=== PATIENT | female | born 1985 | race Caucasian/White ===

== ENCOUNTER 2017-07-15 11:46 | Emergency (ER) | payer OTHER, MEDICAID ==
[2017-07-15 13:41] LABS: BASO % 0.3 % (0.0-1.0); EOS % 0.4 % (0.0-3.0); HEMATOCRIT 32.1 % (36.0-47.0); HEMOGLOBIN 10.9 g/dl (12.0-15.5); IMMATURE GRANULOCYTE % 0.5 % (0-3.0); LYMPH # 2.4 10^3/uL (1.5-4.5); LYMPH % 21.2 % (24.0-44.0); MEAN CORPUSCULAR HEMOGLOBIN 30.8 pg (27.0-33.0); MEAN CORPUSCULAR VOLUME 90.7 fl (80.0-96.0); MONO # 0.7 10^3/uL (0.0-0.8); MONO % 5.7 % (0.0-5.0); NEUTROPHILS # 8.1 10^3/uL (1.8-7.7); NEUTROPHILS % 71.9 % (36.0-66.0); PLATELET COUNT, AUTOMATED 261 10^3/uL (150-450); RED BLOOD COUNT 3.54 10^6/uL (4.00-5.40); RED CELL DISTRIBUTION WIDTH 13.5 % (11.5-14.5); WHITE BLOOD COUNT 11.3 10^3/uL (4.0-10.0)
[2017-07-15 13:44] LABS: KETONE, URINE AUTO RFX 2+ mg/dL (NEGATIVE); LEUKOCYTE ESTERASE UR AUTO RFX NEGATIVE (NEGATIVE); MUCUS, URINE RFX SMALL (NEGATIVE); NITRITE, URINE AUTO RFX NEGATIVE (NEGATIVE); RBC, URINE AUTO RFX 2 /HPF (0-3); SQUAM EPITHELIAL CELL UR AURFX 2 /HPF (0-6); WBC, URINE AUTO RFX 1 /HPF (0-3)
[2017-07-15 14:17] LABS: ANION GAP 11 MEQ/L (8-16); BLOOD UREA NITROGEN 4 MG/DL (7-18); CALCIUM LEVEL 8.2 MG/DL (8.5-10.1); CARBON DIOXIDE LEVEL 24 MEQ/L (21-32); CHLORIDE LEVEL 106 MEQ/L (98-107); CREATININE FOR GFR 0.42 MG/DL (0.55-1.30); GLOMERULAR FILTRATION RATE > 60.0 (>60); GLUCOSE, FASTING 71 MG/DL (70-100); POTASSIUM SERUM 2.7 MEQ/L (3.5-5.1); SODIUM LEVEL 141 MEQ/L (136-145)
[2017-07-15 16:33] LABS: CHLAMYDIA DNA AMPLIFICATION NEGATIVE (NEGATIVE); GC DNA AMPLIFICATION NEGATIVE (NEGATIVE)
== END 2017-07-15 14:48 | disposition left against medical advice (07) ==
LOC: M ED 11:46
DX: O23.592 Infection of other part of genital tract in pregnancy, second trimester (principal); B37.3 Candidiasis of vulva and vagina; O99.282 Endocrine, nutritional and metabolic diseases complicating pregnancy, second trimester; E87.6 Hypokalemia; O99.342 Other mental disorders complicating pregnancy, second trimester; F32.9 Major depressive disorder, single episode, unspecified; O99.512 Diseases of the respiratory system complicating pregnancy, second trimester; J45.909 Unspecified asthma, uncomplicated; O99.612 Diseases of the digestive system complicating pregnancy, second trimester; K21.9 Gastro-esophageal reflux disease without esophagitis; O99.412 Diseases of the circulatory system complicating pregnancy, second trimester; I42.9 Cardiomyopathy, unspecified; O99.332 Smoking (tobacco) complicating pregnancy, second trimester; F17.200 Nicotine dependence, unspecified, uncomplicated; Z3A.18 18 weeks gestation of pregnancy; Z88.0 Allergy status to penicillin; Z88.2 Allergy status to sulfonamides; Z79.899 Other long term (current) drug therapy
CPT/HCPCS: 76815

== ENCOUNTER → 2017-08-04 | Outpatient (CLI) | payer OTHER ==
[2017-08-04 17:41] LABS: ALBUMIN 3.5 GM/DL (3.2-5.2); ALBUMIN/GLOBULIN RATIO 1.13 (1.00-1.93); ALKALINE PHOSPHATASE 64 U/L (45-117); ALT/SGPT 20 U/L (12-78); ANION GAP 10 MEQ/L (8-16); AST/SGOT 19 U/L (7-37); BILIRUBIN,TOTAL 0.4 MG/DL (0.2-1.0); BLOOD UREA NITROGEN 5 MG/DL (7-18); CALCIUM LEVEL 8.7 MG/DL (8.5-10.1); CARBON DIOXIDE LEVEL 24 MEQ/L (21-32); CHLORIDE LEVEL 108 MEQ/L (98-107); CREATININE FOR GFR 0.44 MG/DL (0.55-1.30); GLOMERULAR FILTRATION RATE > 60.0 (>60); GLUCOSE, FASTING 59 MG/DL (70-100); POTASSIUM SERUM 4.1 MEQ/L (3.5-5.1); SODIUM LEVEL 142 MEQ/L (136-145); TOTAL PROTEIN 6.6 GM/DL (6.4-8.2)
[2017-08-04 18:00] LABS: BASO # 0.1 10^3/uL (0.0-0.2); BASO % 0.4 % (0.0-1.0); EOS % 0.3 % (0.0-3.0); HEMATOCRIT 36.4 % (36.0-47.0); HEMOGLOBIN 11.9 g/dl (12.0-15.5); IMMATURE GRANULOCYTE % 0.8 % (0-3.0); LYMPH # 1.9 10^3/uL (1.5-4.5); LYMPH % 15.7 % (24.0-44.0); MEAN CORPUSCULAR HEMOGLOBIN 30.9 pg (27.0-33.0); MEAN CORPUSCULAR HGB CONC 32.7 g/dl (32.0-36.5); MEAN CORPUSCULAR VOLUME 94.5 fl (80.0-96.0); MONO # 0.7 10^3/uL (0.0-0.8); MONO % 5.5 % (0.0-5.0); NEUTROPHILS # 9.5 10^3/uL (1.8-7.7); NEUTROPHILS % 77.3 % (36.0-66.0); PLATELET COUNT, AUTOMATED 281 10^3/uL (150-450); RED BLOOD COUNT 3.85 10^6/uL (4.00-5.40); RED CELL DISTRIBUTION WIDTH 13.3 % (11.5-14.5); WHITE BLOOD COUNT 12.3 10^3/uL (4.0-10.0)
== END ==
LOC: M SMT 10:50
DX: O09.92 Supervision of high risk pregnancy, unspecified, second trimester (principal); Z3A.00 Weeks of gestation of pregnancy not specified
CPT/HCPCS: 80053

== ENCOUNTER → 2017-09-20 | Outpatient (CLI) | payer OTHER ==
[2017-09-20 13:57] LABS: BASO % 0.3 % (0.0-1.0); EOS # 0.1 10^3/uL (0.0-0.50); EOS % 0.6 % (0.0-3.0); HEMATOCRIT 31.4 % (36.0-47.0); HEMOGLOBIN 10.5 g/dl (12.0-15.5); LYMPH # 2.1 10^3/uL (1.5-4.5); LYMPH % 17.2 % (24.0-44.0); MEAN CORPUSCULAR HEMOGLOBIN 31.5 pg (27.0-33.0); MEAN CORPUSCULAR HGB CONC 33.4 g/dl (32.0-36.5); MEAN CORPUSCULAR VOLUME 94.3 fl (80.0-96.0); MONO # 0.9 10^3/uL (0.0-0.8); MONO % 7.3 % (0.0-5.0); NEUTROPHILS # 9.1 10^3/uL (1.8-7.7); NEUTROPHILS % 73.6 % (36.0-66.0); PLATELET COUNT, AUTOMATED 252 10^3/uL (150-450); RED BLOOD COUNT 3.33 10^6/uL (4.00-5.40); RED CELL DISTRIBUTION WIDTH 13.6 % (11.5-14.5); WHITE BLOOD COUNT 12.4 10^3/uL (4.0-10.0)
[2017-09-20 14:25] LABS: GLUCOSE CHALLENGE TEST 1 HOUR 102 MG/DL (LESS THAN 140)
[2017-09-21 08:48] LABS: TYPE AND SCREEN 1 1
== END ==
LOC: M SMT 10:31
DX: Z34.82 Encounter for supervision of other normal pregnancy, second trimester (principal); Z36.89 Encounter for other specified antenatal screening
CPT/HCPCS: 82950

== ENCOUNTER → 2017-10-25 | Outpatient (CLI) | payer OTHER | LOC: M RAD 12:30 | DX: O32.1XX0 Maternal care for breech presentation, not applicable or unspecified (principal); Z3A.37 37 weeks gestation of pregnancy | CPT/HCPCS: 76815 ==

== ENCOUNTER → 2017-11-23 | Outpatient (REF) | payer OTHER, MEDICAID | LOC: M LAB REF 17:24 | DX: O99.89 Other specified diseases and conditions complicating pregnancy, childbirth and the puerperium (principal) ==

== ENCOUNTER 2017-12-05 05:35 | Inpatient (IN) | payer OTHER ==
[2017-12-05] MEDS: LACTATED RINGER'S 1000 ML IV ×2 (06:26→08:00)
[2017-12-05 06:48] LABS: HEMATOCRIT 32.3 % (36.0-47.0); HEMOGLOBIN 10.6 g/dl (12.0-15.5); MEAN CORPUSCULAR HEMOGLOBIN 28.9 pg (27.0-33.0); MEAN CORPUSCULAR HGB CONC 32.8 g/dl (32.0-36.5); PLATELET COUNT, AUTOMATED 219 10^3/uL (150-450); RED BLOOD COUNT 3.67 10^6/uL (4.00-5.40); RED CELL DISTRIBUTION WIDTH 12.9 % (11.5-14.5)
[2017-12-05 07:16] LABS: AMPHETAMINES URINE REFLEX NEGATIVE (NEGATIVE); BARBITURATES URINE REFLEX NEGATIVE (NEGATIVE); BENZODIAZEPINES URINE REFLEX NEGATIVE (NEGATIVE); CANNABINOIDS URINE REFLEX NEGATIVE (NEGATIVE); COCAINE METABOLITE URINE REFLE NEGATIVE (NEGATIVE); METHADONE URINE REFLEX NEGATIVE (NEGATIVE); OPIATES URINE REFLEX NEGATIVE (NEGATIVE); PHENCYCLIDINE URINE REFLEX NEGATIVE (NEGATIVE)
[2017-12-05] MEDS ORDERED: CLINDAMYCIN 900 MG/50 ML PREMIX BAG As Ordered (07:48)
[2017-12-05] MEDS: BICITRA 30ML SOLN UDC PO ×2 (07:50→08:00)
[2017-12-05] MEDS: GENTAMICIN 80 MG in APPROPRIATE DILUENT 1 EA IV (08:00)
[2017-12-05] MEDS ORDERED: CLINDAMYCIN 900 MG in APPROPRIATE DILUENT 1 EA IV (08:00)
[2017-12-05] MEDS ORDERED: LR 1,000 ML IV (08:00)
[2017-12-05] MEDS ORDERED: ONDANSETRON 4MG/2ML VIAL (J2405) IV ×3 (08:02→09:30)
[2017-12-05] MEDS ORDERED: NALBUPHINE HCL 10 MG/ML AMP (J2300) IV ×2 (08:02→09:30)
[2017-12-05] MEDS ORDERED: NALOXONE INJ 0.4 MG/1 ML VIAL (J2310) IV ×2 (08:02)
[2017-12-05] MEDS ORDERED: MORPHINE PRES-FREE INJ 10 MG/10 ML VIAL (J2274) As Ordered (08:19)
[2017-12-05] MEDS ORDERED: OXYTOCIN INJ 10 UNITS/ML VIAL (J2590) As Ordered (08:19)
[2017-12-05] MEDS ORDERED: KETOROLAC 60 MG/2 ML VIAL (J1885) As Ordered ×2 (08:34)
[2017-12-05] MEDS ORDERED: PHENYLephrine HCL 500 MCG/5 ML (100MCG/ML) SYRINGE (J2370) As Ordered (08:34)
[2017-12-05] MEDS: LR 1,000 ML IV ×2 (08:53→16:53)
[2017-12-05] MEDS: PRENATAL VITAMINS CHEWABLE TABLET PO (09:00)
[2017-12-05] MEDS ORDERED: KETOROLAC 30 MG/ML VIAL (J1885) IV (09:00)
[2017-12-05] MEDS ORDERED: MEASLES,MUMPS,RUBELLA VACCINE INJ (MMR-II) (90707) SC (09:00)
[2017-12-05] MEDS ORDERED: HYDROMORPHONE HCL 0.5 MG/ 0.5 ML SYRINGE (J1170 PER 1) IV (09:30)
[2017-12-05] MEDS ORDERED: MEPERIDINE INJ 25 MG/ML VIAL (J2175) IV (09:30)
[2017-12-05] MEDS ORDERED: fentaNYL 100 MCG/2 ML INJECTION (J3010) IV (09:30)
[2017-12-05] MEDS ORDERED: PERCOCET 5MG/325MG TAB PO (09:30)
[2017-12-05] MEDS: KETOROLAC 30 MG/ML VIAL (J1885) IV ×2 (14:25→20:52)
[2017-12-05] MEDS: METOCLOPRAMIDE INJ 10MG/2ML VIAL (J2765) IV (16:12)
[2017-12-06] MEDS: LR 1,000 ML IV (00:53)
[2017-12-06] MEDS: KETOROLAC 30 MG/ML VIAL (J1885) IV (03:23)
[2017-12-06 06:34] LABS: HEMATOCRIT 26.7 % (36.0-47.0); HEMOGLOBIN 8.8 g/dl (12.0-15.5); MEAN CORPUSCULAR HEMOGLOBIN 28.9 pg (27.0-33.0); MEAN CORPUSCULAR VOLUME 87.5 fl (80.0-96.0); PLATELET COUNT, AUTOMATED 201 10^3/uL (150-450); RED BLOOD COUNT 3.05 10^6/uL (4.00-5.40); WHITE BLOOD COUNT 12.1 10^3/uL (4.0-10.0)
[2017-12-06] MEDS: PRENATAL VITAMINS CHEWABLE TABLET PO (08:22)
[2017-12-06] MEDS: INFLUENZA QUADRIVALENT PF VACCINE 0.5ML SYRINGE (90686) IM (08:45)
[2017-12-06] MEDS: ADACEL/BOOSTRIX VACCINE (DIPHTH/PERTUSS/ACELL/TETANUS)0.5ML SYR (90715) IM (08:47)
[2017-12-06] MEDS: IBUPROFEN 800 MG TAB PO ×2 (10:14→18:55)
[2017-12-06 12:49] LABS: FETAL SCREEN PROF. 1 1
[2017-12-06] MEDS: RHOGAM 300 MCG (1500 IU) INJ (J2790) IM (13:04)
[2017-12-06] MEDS: FUROSEMIDE 20 MG TAB PO (16:11)
[2017-12-06] MEDS: PERCOCET 5MG/325MG TAB PO ×2 (16:14→21:32)
[2017-12-06] MEDS: SLF 3 ML SYR IV ×2 (19:00→22:10)
[2017-12-06] MEDS: SIMETHICONE 80 MG CHEW TAB PO (21:56)
[2017-12-07] MEDS: IBUPROFEN 800 MG TAB PO ×2 (02:37→10:52)
[2017-12-07] MEDS: SLF 3 ML SYR IV (06:22)
[2017-12-07] MEDS: SIMETHICONE 80 MG CHEW TAB PO (07:56)
[2017-12-07] MEDS: PRENATAL VITAMINS CHEWABLE TABLET PO (07:56)
[2017-12-07] MEDS: PERCOCET 5MG/325MG TAB PO (07:56)
== END 2017-12-07 17:30 | disposition home or self-care (01) | DRG 540 ==
LOC: M LDI 05:35 → M OBS 11:05
PROVIDERS: Emergency Medicine Pediatric Emergency Medicine
PROC: 10D00Z1 Extraction of Products of Conception, Low, Open Approach (ICD-10-PCS; principal; 2017-12-05 07:30)
PROC: 0UB70ZZ Excision of Bilateral Fallopian Tubes, Open Approach (ICD-10-PCS; 2017-12-05 07:30)
DX: O32.1XX0 Maternal care for breech presentation, not applicable or unspecified (principal); Z30.2 Encounter for sterilization; Z37.0 Single live birth; Z3A.37 37 weeks gestation of pregnancy

== ENCOUNTER 2018-06-28 17:10 | Inpatient (IN) | payer BC, MEDICAID ==
[~2018-06-28] VITALS: Ht 170.2 cm; Wt 50.6 kg
[~2018-06-28 17:10] MED LIST: ASPI81TA3; CARV6.25 PO; COLA100C2; CORE25TA; FURO20TA2; FURO40TA2 PO; LASI40TA; LEXA1TAB; LEXA1TAB2; LORA10CA PO; MAGN500T2 PO; MONI1KIT3 PV; MOTR200T44 PO; NITR0.4S; OMEP10CASR PO; OMEP20TA PO; OXYC1TAB23 PO; POTA20TA6 PO; PREN1CAP9 PO; ZYRT10TA6; [UNRECOGNIZED DRUG - OTHER]; [UNRECOGNIZED DRUG - OTHER]; prenatal PO
[2018-06-28 19:30] VITALS: BP 110/71
[2018-06-28 19:45] VITALS: BP 106/61
[2018-06-28 20:00] VITALS: BP 108/61
[2018-06-28] MEDS ORDERED: MOM 30ML SUSPENSION UDC PO PRN (20:15)
[2018-06-28] MEDS ORDERED: MAALOX 30 ML SUSP *UDC PO PRN (20:15)
--- NOTE | 2018-06-28 20:19 | HPEPDOC ---
General Date of Admission June 28, 2018 at 19:20 Chief Complaint The patient is a 32-year-old female admitted with a reason for visit of Acute Blood Loss. Source: Patient, RN/MD History of Present Illness Ms. Bay is a 32 years old woman with hx/o post- cardiomyopathy who had an elective D&C at [facility] today and had significant bleeding, about 700cc. The pt was hypotensive BP 60/40, and tachycardic HR 150, associated with extreme dizziness and weakness. Pt was resuscitated with IV fluid, total of 3L boluses, and en route she also received 2 units of blood transfusion. On arrival to our ICU, pt has already improved. SBP is above 100, tachycardia is resolved, pt feels only slight dizzy. Other than abdominal pain from surgery, she has no other complaints. Denies chest pain or SOB. Denies hx/o abnormal bleeding. Elective D&C today was trigerred by her recent abnormal PAP smear result. Home Medications Scheduled Carvedilol (Carvedilol) 6.25 Mg Tab, 6.25 MG PO DAILY, (Reported) Omeprazole (Omeprazole) 20 Mg Tab, 20 MG PO DAILY, (Reported) Oxycodone HCl/Acetaminophen (Oxycodone-Acetaminophen 5-325) 1 Tab Tab, 1-2 TAB PO Q6HP for pain Potassium Chloride (Potassium Chloride) 20 Meq Tab, 20 MEQ PO DAILY, (Reported) Tae228/Iron/Folic/Dha ( Formula-Dha Softgel) 1 Cap Cap, 1 CAP PO DAILY, (Reported) Scheduled PRN Ibuprofen (Motrin Ib) 200 Mg Tab, 800 MG PO Q8HP PRN for PAIN, (Reported) Allergies Coded Allergies: Penicillins (Verified Allergy, Severe, RASH/HIVES/TONGUE SWELLS, 06/28/18) Sulfa (Sulfonamide Antibiotics) (Verified Allergy, Severe, RASH/HIVES/TONGUE SWELLS, 06/28/18) Past Medical History Medical History Post- cardiomyopathy Surgical History , Tubal ligation, Left Breast Lumpectomy Family History Significant Family History: No pertinent family hx Social History * Smoker: current smoker Alcohol: occationally Drugs: denies A-FIB/CHADSVASC A-FIB History Current/History of A-Fib/PAF?: No Review of Systems Constitutional: Reports: Weakness; Denies: Chills, Fever Eyes: Denies: Pain ENT: Denies: Head Aches Skin: Denies: Rash Pulmonary: Denies: Dyspnea, Cough Cardiovascular: Denies: Chest Pain, Edema Gastrointestinal: Reports: Abdominal Pain; Denies: Nausea, Vomiting Genitourinary: Denies: Dysuria Musculoskeletal: Denies: Back Pain Neurological: Reports: Weakness Psych: Reports: Mood Normal Physical Examination General Exam: Positive: Alert, Cooperative, No Acute Distress Eye Exam: Positive: PERRLA ENT Exam: Positive: Atraumatic Neck Exam: Positive: Supple; Negative: JVD Chest Exam: Positive: Clear to auscultation, Normal air movement Heart Exam: Positive: Rate Normal, Regular Rhythm Abdomen Exam: Positive: Normal bowel sounds, Soft; Negative: Tenderness Extremity Exam: Negative: Edema Skin Exam: Negative: Rash Neuro Exam: Positive: Strength at 5/5 X4 ext Psych Exam: Positive: Mental status NL, Mood NL Vital Signs Vital Signs Date Time Temp Pulse Resp B/P (MAP) Pulse Ox O2 Delivery O2 Flow Rate FiO2 06/28/18 19:45 97 16 106/61 (76) 100 06/28/18 19:30 99.2 Assessment/Plan Post-op Uterine Hemorrhage, with hypotension now resolved - Keep on observation in ICU - If any signs of further bleeding or hypotension, transfuse +/- fluid bolus - Now that pt is stable, avoid further transfusion or IV fluid due to risk of cardiac decompensation - basic Labs; serial H/H; CXR Post- Cardiomyopathy - In a compensated state - Re-start hoe meds: Coreg and Lasix Plan / VTE VTE Prophylaxis Ordered?: Yes VTE Exclusion Mechanical Proph: N/A:VTE Prophy Ordered VTE Exclusion Pharmacological: Active Bleeding Plan Anticipated Discharge: Home YEISON JOSHUA MD June 28, 2018 20:19
[2018-06-28 20:30] VITALS: BP 105/58
[2018-06-28 20:39] LABS: BASO % 0.2 % (0.0-1.0); HEMATOCRIT 25.2 % (36.0-47.0); HEMOGLOBIN 8.3 g/dl (12.0-15.5); LYMPH # 0.9 10^3/uL (1.5-4.5); LYMPH % 4.3 % (24.0-44.0); MEAN CORPUSCULAR HEMOGLOBIN 31.2 pg (27.0-33.0); MEAN CORPUSCULAR HGB CONC 32.9 g/dl (32.0-36.5); MEAN CORPUSCULAR VOLUME 94.7 fl (80.0-96.0); MONO # 0.8 10^3/uL (0.0-0.8); MONO % 4.1 % (0.0-5.0); NEUTROPHILS # 17.9 10^3/uL (1.8-7.7); NEUTROPHILS % 90.4 % (36.0-66.0); PLATELET COUNT, AUTOMATED 205 10^3/uL (150-450); RED BLOOD COUNT 2.66 10^6/uL (4.00-5.40); WHITE BLOOD COUNT 19.8 10^3/uL (4.0-10.0)
[2018-06-28 20:52] LABS: INR 1.16
[2018-06-28 20:53] LABS: PARTIAL THROMBOPLASTIN TIME 25.8 SECONDS (25.4-37.6)
[2018-06-28 20:59] LABS: ALBUMIN 2.8 GM/DL (3.2-5.2); ALT/SGPT 11 U/L (12-78); BILIRUBIN,TOTAL 0.8 MG/DL (0.2-1.0); BLOOD UREA NITROGEN 12 MG/DL (7-18); CALCIUM LEVEL 7.8 MG/DL (8.5-10.1); CARBON DIOXIDE LEVEL 21 MEQ/L (21-32); CHLORIDE LEVEL 115 MEQ/L (98-107); CREATININE FOR GFR 0.66 MG/DL (0.55-1.30); GLOMERULAR FILTRATION RATE > 60.0 (>60); GLUCOSE, FASTING 103 MG/DL (70-100); POTASSIUM SERUM 4.6 MEQ/L (3.5-5.1); SODIUM LEVEL 142 MEQ/L (136-145); TOTAL PROTEIN 4.7 GM/DL (6.4-8.2)
[2018-06-28 21:00] VITALS: BP 93/60
[2018-06-28] MEDS: CARVedilol 3.125 MG TAB PO SCH (21:00)
[2018-06-28] MEDS: PERCOCET 5MG/325MG TAB PO PRN (21:08)
[2018-06-28] MEDS: FERROUS SULFATE 325MG TAB PO SCH (21:45)
[2018-06-28] MEDS: ONDANSETRON 4MG/2ML VIAL (J2405) IV SCH (22:52)
[2018-06-28] MEDS: MORPHINE 4 MG/ML 1ML VIAL/SYRINGE (J2270) IV PRN (22:52)
[2018-06-29] VITALS (16 sets, daily range): BP systolic 92–130; BP diastolic 50–80
[2018-06-29] MEDS: PERCOCET 5MG/325MG TAB PO PRN ×3 (00:09→16:50)
[2018-06-29] MEDS: SIMETHICONE 80 MG CHEW TAB PO SCH ×5 (00:32→20:40)
[2018-06-29 00:36] LABS: HEMATOCRIT 22.1 % (36.0-47.0); HEMOGLOBIN 7.3 g/dl (12.0-15.5)
[2018-06-29] MEDS: ONDANSETRON 4MG/2ML VIAL (J2405) IV SCH ×5 (01:00→14:04)
--- NOTE | 2018-06-29 01:52 | REP ---
Clinical: "Blood loss". Comparison: 03/05/2009 . Findings: The mediastinum and cardiac silhouette are stable and within normal limits for portable technique. The lung meyer are clear without acute consolidation, effusion, or pneumothorax. Skeletal structures are intact. Impression: No acute cardiopulmonary process appreciated. Electronically Signed by Nino Luo MD 06/29/2018 01:44 A
[2018-06-29] MEDS ORDERED: GNP28TAB2 PO (01:57)
[2018-06-29] MEDS ORDERED: ASCO100013 PO (01:57)
[2018-06-29] MEDS ORDERED: NORC1TAB7 PO (01:57)
[2018-06-29] MEDS ORDERED: IBUP1TAB6 PO (01:57)
[2018-06-29] MEDS ORDERED: FURO20TA2 PO (01:57)
[2018-06-29] MEDS: MORPHINE 4 MG/ML 1ML VIAL/SYRINGE (J2270) IV PRN ×2 (02:29→07:05)
[2018-06-29] MEDS ORDERED: FUROSEMIDE 40 MG/4 ML VIAL (J1940) IV ONE (05:00)
[2018-06-29 07:59] LABS: BASO # 0.1 10^3/uL (0.0-0.2); BASO % 0.4 % (0.0-1.0); EOS % 0.1 % (0.0-3.0); HEMATOCRIT 31.3 % (36.0-47.0); MEAN CORPUSCULAR HEMOGLOBIN 30.2 pg (27.0-33.0); MEAN CORPUSCULAR HGB CONC 33.2 g/dl (32.0-36.5); MONO # 1.3 10^3/uL (0.0-0.8); MONO % 9.5 % (0.0-5.0); NEUTROPHILS # 10.5 10^3/uL (1.8-7.7); NEUTROPHILS % 75.5 % (36.0-66.0); PLATELET COUNT, AUTOMATED 142 10^3/uL (150-450); RED BLOOD COUNT 3.44 10^6/uL (4.00-5.40); WHITE BLOOD COUNT 13.9 10^3/uL (4.0-10.0)
[2018-06-29 08:02] LABS: HEMOGLOBIN 10.4 g/dl (12.0-15.5)
[2018-06-29] MEDS: FERROUS SULFATE 325MG TAB PO SCH ×3 (08:09→20:40)
[2018-06-29] MEDS: CARVedilol 3.125 MG TAB PO SCH ×2 (08:10→21:00)
[2018-06-29] MEDS ORDERED: MORPHINE 4 MG/ML 1ML VIAL/SYRINGE (J2270) IV PRN (08:30)
[2018-06-29] MEDS ORDERED: FUROSEMIDE 20 MG TAB PO SCH (09:00)
[2018-06-29] MEDS ORDERED: ISOVUE-370 76% 100ML VIAL (Q9967) As Ordered ONE (11:55)
--- NOTE | 2018-06-29 12:38 | REP ---
CT ABDOMEN AND PELVIS WITH IV BUT WITHOUT ORAL CONTRAST: HISTORY: Falling hemoglobin and hematocrit. 2 days status post elective dilation and curettage with significant bleeding. Hypotension tachycardia. CT CONTRAST DOSE: 100 mL of intravenous Isovue 370. CT FINDINGS: Preliminary digital it infrastructure architect radiograph is unremarkable. The lung bases are clear. There is no evidence of pleural effusion. There is however moderate diffuse ascites. There is a differential density pattern in the ascites with higher attenuation ascitic fluid in the dependent portions of the cul-de-sac and abdomen consistent with hematocrit effect and hemoperitoneum. In the pelvis, there is mottled air collection extending posterolaterally from the lower cervix into what appears to be the parametrial soft tissue above the level of the vagina. Question uterine perforation. This mottled area containing air extends over a 4.5 cm oblique craniocaudal span. Urinary bladder is intact. There is no evidence of free intraperitoneal air. There are fluid-filled loops of small bowel throughout the abdomen. No large bowel dilation is seen. No obstruction seen. No bony lesion is appreciated. IMPRESSION: 1. Moderate to large hemoperitoneum. 2. Mottled gas collection 4.5 cm in greatest diameter in the left parametrial soft tissues; question uterine perforation. No free intraperitoneal air. Electronically Signed by Jw Funes MD 06/29/2018 01:15 P
[2018-06-29 13:28] LABS: HEMATOCRIT 28.2 % (36.0-47.0); HEMOGLOBIN 9.3 g/dl (12.0-15.5)
--- NOTE | 2018-06-29 15:21 | IPN ---
DATE OF VISIT: 06/29/2018 SUBJECTIVE: Patient is seen and examined in the room today. Patient is a 32-year-old female patient who had a colposcopy and dilatation and curettage (D C) in [facility] yesterday. Patient had more than 700 mL of blood loss during procedure, patient became hypotensive, at the time her blood pressure was 60/40. Patient then was not able to receive blood transfusion. Multiple liters of blood transfusion was given to the patient and request transfer was made to [facility] for upper level of care. While patient was en route patient received 2 units of packed red blood transfusion. After patient arrived at [facility] intensive care unit (ICU) patient received another additional two packed red blood cell transfusions. This morning during encounter patient's blood pressure maintained in the stable range, no recurrence of tachycardia. Patient denies any significant vaginal bleeding. However, the patient did complain of persistent lower abdominal discomfort. Later patient was transferred from ICU to med/surg. So later patient complained about worsening abdominal discomfort and IV and by mouth pain medication were not able to help control the symptoms well and urgent CT imaging was obtained and patient was found to have moderate to large hemoperitoneum and a moderate gas collection in the left parametrial soft tissue concerning for uterine perforation and OB-[facility] specialist, Dr. Coronado, was consulted urgently and we had a family discussion with the patient and patient's family and patient was upgraded to the telemetry floor. I will continue to follow with hemoglobin, hematocrit and vitals closely. Patient waiting for with regard to the diagnostic finding and agree with the plan. OBJECTIVE: Temperature 99.2, pulse 75, respiration 16, blood pressure 115/64, pulse ox 99% on room air. GENERAL: Mild to moderate distress secondary to persistent lower abdominal pain. HEENT: Normocephalic, atraumatic. Extraocular motions. CARDIOVASCULAR: Positive S1, S2. Regular rate. LUNGS: Clear to auscultation bilaterally. ABDOMEN: Abdominal distension noted. Discomfort to palpation mainly in the lower abdomen. Bowel sounds present. EXTREMITIES: No edema. LABORATORY DATA: WBC 13.9, hemoglobin 10.4, hematocrit 31.3, platelet count is 142, sodium 142, potassium 4.6, chloride 115, carbon dioxide 21, BUN 12, creatinine 0.6, GFR greater than 60, fasting glucose is 103, calcium 7.8, total bilirubin 0.8, AST 16, ALT 11, alkaline phosphatase 40, total protein 4.7, albumin 2.8. ASSESSMENT AND PLAN: 1. Uterine perforation. Patient has a recent colposcopy performed. Patient was upgraded to ICU, patient was changed to inpatient status. OB-[facility] specialist, Dr. Coronado, consulted. Patient will be switched to a clear liquid diet. Pain control is IV and by mouth medications. We will keep track of hemoglobin and hematocrit every 6 hours. We will transfuse the patient as needed. 2. cardiomyopathy. On Coreg with holding parameter. Coreg is on hold. 3. Deep venous thrombosis (DVT) prophylaxis. Patient will be on thromboembolic deterrent stockings (TEDS) compression.
[2018-06-29] MEDS ORDERED: ONDANSETRON 4MG/2ML VIAL (J2405) IV PRN (17:00)
--- NOTE | 2018-06-29 17:08 | CR ---
DATE OF CONSULTATION: 06/29/2018 This is a 32-year-old G5, P4-0-1-4 female who is hospital day #2 after having a surgical procedure at [facility] a day ago. She had a cervical cone biopsy as well as dilatation and curettage (D and C) procedure for atypical glandular cells on Pap smear. This was done by Dr. Sharda Lipscomb. She had reportedly had significant bleeding, as much as 700 mL, at the time of the procedure. In addition, the patient was hypotensive with blood pressures of 60/40 and tachycardic associated with extreme dizziness and weakness. After resuscitation with intravenous (IV) fluids, the decision was made to transfer the patient to [facility] due to an inadequate blood bank supply at the hospital in [facility]. MEDICAL HISTORY: 1. cardiomyopathy in 2006, following delivery of her second child. 2. Depression. 3. History of cervical dysplasia. SURGICAL HISTORY: 1. section. 2. Tubal ligation. 3. Left breast lumpectomy. 4. Loop electrosurgical excision procedure (LEEP) in 2014. OBSTETRICAL HISTORY: 1. March 2003, A 39-week vaginal delivery, 5 pound 4 ounce female. 2. August 2006, A 39-week vaginal delivery, 5 pound 6 ounce female. 3. In 2010, A 39-week vaginal delivery of 4 pound 6 ounce female. 4. In 2009, miscarriage. 5. November 2017, section, 37-week breech . MEDICATIONS: - carvedilol 6.25 mg daily - omeprazole 20 mg daily - oxycodone and acetaminophen for pain - potassium chloride - vitamins ALLERGIES: 1. PENICILLIN. 2. SULFA. FAMILY HISTORY: Noncontributory. SOCIAL HISTORY: The patient lives in [facility]. Her partner is involved. She is a smoker. She denies drug use or significant alcohol use. PHYSICAL EXAMINATION: Blood pressure 115/57, pulse 90, oxygen saturation 100%, temperature 98.7. She is in no apparent distress. HEAD AND NECK:: Normal. LUNGS: Clear. HEART: Regular rate and rhythm. ABDOMEN: Mildly tender and distended with no rebound or guarding. EXTREMITIES: Nontender with trace edema. LABORATORY DATA: Most recent hemoglobin 9.[address] scan shows air collection in the posterior left lateral uterus to lower uterine segment, suspicious for possible uterine perforation. There is a moderate amount of hemoperitoneum present. There are fluid-filled loops of small bowel. No obvious large bowel dilatation is seen. There is no free intraperitoneal air. ASSESSMENT: A 32-year-old is postoperative day #2 after dilatation and curettage (D and C) procedure complicated by hemorrhage and possible uterine perforation. PLAN: Follow serial hemoglobin levels. Assess for stability and continuation of intraperitoneal bleeding. In addition, will observe for any possible risk of bowel injury as a result of probable uterine perforation and look for signs of increasing pain, vomiting, or fevers. Most uterine perforations will heal spontaneously and do not require surgical intervention. Will follow during course of hospitalization.
[2018-06-29 18:00] LABS: HEMATOCRIT 26.2 % (36.0-47.0); HEMOGLOBIN 8.7 g/dl (12.0-15.5)
[2018-06-29] MEDS: ACETAMINOPHEN TAB 650MG DOSE (2X325MG) PO PRN (20:40)
[2018-06-29 23:33] LABS: HEMATOCRIT 25.3 % (36.0-47.0); HEMOGLOBIN 8.4 g/dl (12.0-15.5)
[2018-06-30] VITALS: BP 88/53
[2018-06-30 04:00] VITALS: BP 99/56
[2018-06-30 04:25] LABS: HEMATOCRIT 25.8 % (36.0-47.0); HEMOGLOBIN 8.3 g/dl (12.0-15.5); MEAN CORPUSCULAR HEMOGLOBIN 29.3 pg (27.0-33.0); MEAN CORPUSCULAR HGB CONC 32.2 g/dl (32.0-36.5); MEAN CORPUSCULAR VOLUME 91.2 fl (80.0-96.0); PLATELET COUNT, AUTOMATED 122 10^3/uL (150-450); RED BLOOD COUNT 2.83 10^6/uL (4.00-5.40); WHITE BLOOD COUNT 7.8 10^3/uL (4.0-10.0)
[2018-06-30] MEDS: ACETAMINOPHEN TAB 650MG DOSE (2X325MG) PO PRN (04:29)
[2018-06-30 04:31] LABS: BLOOD UREA NITROGEN 6 MG/DL (7-18); CALCIUM LEVEL 7.9 MG/DL (8.5-10.1); CARBON DIOXIDE LEVEL 27 MEQ/L (21-32); CHLORIDE LEVEL 113 MEQ/L (98-107); CREATININE FOR GFR 0.57 MG/DL (0.55-1.30); GLOMERULAR FILTRATION RATE > 60.0 (>60); GLUCOSE, FASTING 89 MG/DL (70-100); MAGNESIUM LEVEL 1.9 MG/DL (1.8-2.4); POTASSIUM SERUM 3.8 MEQ/L (3.5-5.1); SODIUM LEVEL 145 MEQ/L (136-145)
--- NOTE | 2018-06-30 07:37 | NUR ---
Progress note S: No pain or nausea overnight O: BP=99/56 T=99.0 P=68 NAD Abd: NT, soft, ND ext: NT Hb= 8.4 g/dl >> 8.3 g/dl A/P 32 yo with uterine perforation and hemorrhage s/p cervical conization POD#2 Pt appears stable advance to regular diet Pt is tolerating anemia recommend discharge today Pt will fu with us in 2 weeks; likely planning for hysterectomy in the near future Jimbo Coronado MD
[2018-06-30 08:00] VITALS: BP 114/71
[2018-06-30] MEDS ORDERED: PERCOCET PO (08:30)
[2018-06-30] MEDS ORDERED: SIME80TA PO (08:30)
[2018-06-30 08:55] VITALS: BP 114/71
[2018-06-30] MEDS: CARVedilol 3.125 MG TAB PO SCH (08:55)
[2018-06-30] MEDS: SIMETHICONE 80 MG CHEW TAB PO SCH (08:57)
[2018-06-30] MEDS: PERCOCET 5MG/325MG TAB PO PRN (08:57)
[2018-06-30] MEDS: FERROUS SULFATE 325MG TAB PO SCH (08:57)
--- NOTE | 2018-06-30 20:56 | DSES ---
DATE OF ADMISSION: 06/29/2018 DATE OF DISCHARGE: 06/30/2018 CONSULTANTS: Ob-Surgical Pathologist, Dr. Jimbo Coronado MD PROCEDURES: None. DISCHARGE DIAGNOSES: 1. Uterine perforation. 2. Acute blood loss anemia. 3. cardiomyopathy. HOSPITALIZATION COURSE: Patient is a 32-year-old female who had a elective Ob-Surgical Pathologist procedure done in [facility]. Patient was found to have significant blood loss during the procedure. Patient became hemodynamically stable with severe hypotension and tachycardia. Patient was given multiple bolus of IV fluid and [facility] was called for direct transfer. While patient was en route, the patient received 2 packed red blood transfusion. After patient arrived to ICU, patient received additional 2 units of blood transfusion. Patient became more hemodynamically stable, however, later complained of worsening abdominal distention and abdominal pain. CT imaging was performed. Patient had the finding suggestive of uterine perforation and Ob-Surgical Pathologist specialist, Dr. Coronado consulted. Recommended close observation. Later patient's abdominal discomfort and abdominal distention showed gradual improvement. Hemoglobin and hematocrit remained fairly stable without sign of active bleeding. After discussing with Ob-Surgical Pathologist and the patient, patient determined medically stable for discharge with the recommendation to followup with Dr. Coronado in two weeks in outpatient setting. OBJECTIVE: VITAL SIGNS: Temperature 99.8, pulse 77, respirations 18, blood pressure 114/71, pulse ox 98% on room air. LABORATORY DATA: On day of discharge: WBC 10.8, hemoglobin 8.3, hematocrit 25.8, platelet count is 122. Sodium is 145, potassium 3.8, chloride is 113. Carbon dioxide 27, BUN 6, creatinine 0.57, GFR greater than 60. Fasting glucose 89, calcium 7.9, magnesium 1.9. PT is 59, INR is 1.16. PTT 25.8. BLOOD TRANSFUSION HISTORY AT [facility]: 2 packed red blood cells transfusion on June 29, 2018. Chest x-ray showed no acute cardiopulmonary process appreciated. CT abdomen and pelvis with IV contrast demonstrated moderate to large hemoperitoneum. Moderate gas collection 4.5 cm in greatest diameter in the left parametrial soft tissues. Question uterine perforations. No free intraperitoneal air. DISCHARGE MEDICATIONS: - Percocet 1 tablet by mouth every 8 hours as needed. 2 days supply - simethicone 120 mg by mouth four times a day. 4 days supply - vitamin C 1000 mg by mouth daily - carvedilol 6.25 mg by mouth daily - Lasix 20 mg by mouth daily as needed for swelling - ibuprofen 600 mg by mouth three times a day as needed for pain - omeprazole 20 mg by mouth daily - vitamin 1 tablet by mouth daily - potassium chloride 20 mg by mouth daily as needed for as needed Lasix administration DISCHARGE INSTRUCTIONS: Discontinue lines. Discharge home. Activity as tolerated. Diet as tolerated. Patient should followup with Ob-Surgical Pathologist specialist, Dr. Coronado in two weeks. DISCHARGE CONDITION: Fair. Discharge took greater than 30 minutes.
== END 2018-06-30 12:41 | disposition home or self-care (01) | DRG 813 ==
LOC: M ICU 19:20 → INTOOBSV 19:20 → M MSPAV 06-29 11:50 → OBSVTOIN 06-29 13:48 → M ICU 06-29 14:18
PROVIDERS: ADMIT Internal Medicine; ATTEND Internal Medicine
PROC: 30233N1 Transfusion of Nonautologous Red Blood Cells into Peripheral Vein, Percutaneous Approach (ICD-10-PCS; principal; 2018-06-29)
DX: N99.820 Postprocedural hemorrhage of a genitourinary system organ or structure following a genitourinary system procedure (principal); F17.200 Nicotine dependence, unspecified, uncomplicated; Z88.0 Allergy status to penicillin; Z88.2 Allergy status to sulfonamides; Z79.899 Other long term (current) drug therapy; D62 Acute posthemorrhagic anemia

== ENCOUNTER 2018-09-05 12:13 | Day surgery (SDC) | payer BC, MEDICAID ==
[~2018-09-05] VITALS: Ht 170.2 cm; Wt 48.5 kg
[~2018-09-05 12:13] MED LIST changes: +ASCO100013 PO; +FURO20TA2 PO; +GNP28TAB2 PO; +IBUP1TAB6 PO; +LR 1,000 ML IV ONE; +NORC1TAB7 PO; +PERCOCET PO; +SIME80TA PO
[2018-09-05 12:50] LABS: HEMATOCRIT 43.3 % (36.0-47.0); HEMOGLOBIN 13.7 g/dl (12.0-15.5); MEAN CORPUSCULAR HEMOGLOBIN 29.1 pg (27.0-33.0); MEAN CORPUSCULAR HGB CONC 31.6 g/dl (32.0-36.5); MEAN CORPUSCULAR VOLUME 92.1 fl (80.0-96.0); PLATELET COUNT, AUTOMATED 287 10^3/uL (150-450); WHITE BLOOD COUNT 10.1 10^3/uL (4.0-10.0)
[2018-09-05] MEDS ORDERED: ONDANSETRON 4MG/2ML VIAL (J2405) As Ordered ONE (13:02)
[2018-09-05] MEDS ORDERED: dexameTHASONE 4 MG/ML 1ML VIAL (J1100) As Ordered ONE (13:02)
[2018-09-05] MEDS ORDERED: ROCURONIUM BROMIDE 50 MG/5 ML VIAL As Ordered ONE ×2 (13:02→15:23)
[2018-09-05] MEDS ORDERED: KETOROLAC 60 MG/2 ML VIAL (J1885) As Ordered ONE (13:02)
[2018-09-05] MEDS ORDERED: LIDOCAINE 2% INJ 100 MG/5 ML SDV (FOR ANES.) As Ordered ONE (13:02)
[2018-09-05] MEDS ORDERED: PROPOFOL 200 MG/20 ML VIAL As Ordered ONE (13:02)
[2018-09-05] MEDS ORDERED: MIDAZOLAM INJ 2 MG/2 ML VIAL (J2250) As Ordered ONE (13:03)
[2018-09-05] MEDS ORDERED: fentaNYL 250 MCG/5 ML INJECTION (J3010) As Ordered ONE (13:03)
[2018-09-05 13:05] LABS: URINE PREG TEST NEGATIVE (NEGATIVE)
[2018-09-05] MEDS ORDERED: METHYLENE BLUE 0.5% (5MG/ML) 10 ML AMP (PROVAYBLUE)(Q9968 PER 1MG) As Ordered ONE (13:44)
[2018-09-05] MEDS ORDERED: BUPIVACAINE HCL 0.25% 30 ML VIAL As Ordered ONE (13:44)
[2018-09-05] MEDS ORDERED: ceFAZolin 2 GM/D5W 50 ML IV BAG (J0690 PER 500MG) As Ordered ONE (13:55)
[2018-09-05] MEDS ORDERED: ACETAMINOPHEN 1000MG 100ML IV BTL (OFIRMEV) (J0131 PER 10MG) As Ordered ONE (14:18)
[2018-09-05] MEDS ORDERED: HYDROmorphone HCL 2 MG/ML 1ML VIAL (J1170) As Ordered ONE (15:04)
[2018-09-05] MEDS ORDERED: fentaNYL 100 MCG/2 ML INJECTION (J3010) As Ordered ONE ×2 (15:20→17:01)
[2018-09-05] MEDS ORDERED: SUGAMMADEX SODIUM 500 MG/5 ML VIAL (BRIDION) As Ordered ONE (16:15)
[2018-09-05] MEDS ORDERED: oxyCODONE 5MG TAB As Ordered ONE (17:01)
[2018-09-05] MEDS: fentaNYL 100 MCG/2 ML INJECTION (J3010) IV PRN ×3 (17:05→17:22)
[2018-09-05] MEDS ORDERED: ONDANSETRON 4MG/2ML VIAL (J2405) IV PRN ×2 (17:15)
[2018-09-05] MEDS ORDERED: MORPHINE 4 MG/ML 1ML VIAL/SYRINGE (J2270) IV PRN (17:15)
[2018-09-05] MEDS ORDERED: LR 1,000 ML IV SCH ×2 (17:15)
[2018-09-05] MEDS ORDERED: KETOROLAC 30 MG/ML VIAL (J1885) IV PRN (17:15)
[2018-09-05] MEDS ORDERED: PERCOCET 5MG/325MG TAB PO PRN ×2 (17:15)
[2018-09-05] MEDS ORDERED: oxyCODONE 5MG TAB PO PRN (17:15)
[2018-09-05 18:00] VITALS: BP 140/77
[2018-09-05 18:40] VITALS: BP 142/72
[2018-09-05] MEDS ORDERED: OXYC1TAB23 PO (19:13)
[2018-09-05 19:30] VITALS: BP 133/58
[2018-09-05 20:30] VITALS: BP 136/90
[2018-09-05] MEDS ORDERED: ceFAZolin SOD 1 GM in D5W MINI-BAG PLUS 50 ML IV ONE (21:00)
[2018-09-05] MEDS: DOCUSATE SODIUM 100 MG CAP PO SCH (21:29)
[2018-09-05 21:30] VITALS: BP 131/70
[2018-09-05 22:30] VITALS: BP 122/66
--- NOTE | 2018-09-05 23:47 | RO ---
DATE OF PROCEDURE: 09/05/2018 PREPROCEDURE DIAGNOSIS: Abnormal uterine bleeding. POSTPROCEDURE DIAGNOSIS: Abnormal uterine bleeding, chronic uterine perforation. PROCEDURE: Robotic-assisted laparoscopic hysterectomy, bilateral salpingectomy, cystoscopy. SURGEON: Jimbo Coronado MD LOSS CONTROL TECHNICIAN: Radha Dumas MD ANESTHESIA: General endotracheal. ESTIMATED BLOOD LOSS: 200 mL. URINE OUTPUT: 100 mL with 1500 mL of lactated Ringer's (LR). FINDINGS: Normal sized uterus with 4 cm hematoma left lower uterine segment. A 1 cm perforation was noted under the area of the hematoma, A shortened cervix, asymmetrically short on the left side. There were adhesions of bowel and epiploica to the left cervical region. She had evidence of prior tubal sterilization. Normal ovaries. DESCRIPTION OF PROCEDURE: The patient was taken to the operating room where general endotracheal anesthesia was induced. She was prepped and draped in a sterile fashion in the dorsal lithotomy position. A Wolfe catheter was placed. A HotDeskare uterine manipulator was placed. The cervix was noted to be extremely shortened during placement of the manipulator. A periumbilical incision was made with a scalpel. Veress needle was placed through this incision while tenting up on the skin of the abdomen. Intraabdominal location of the Veress needle was assessed with the use of a saline-filled syringe. Pneumoperitoneum was created. The Veress needle was removed. 8 mm trocar using Visiport was inserted through this incision. Three 8 mm suprapubic ports were placed under direct visualization. The Da Jeffrey surgical robot was docked to the ports after the patient was placed in Trendelenburg position. Using the fenestrated bipolar instrument and the vessel sealer, adhesions of epiploica and sigmoid colon to the left lower uterine segment and cervix were taken down bluntly. Fallopian tube attachments to the broad ligament were coagulated and incised. The utero-ovarian ligaments were coagulated and incised. The round ligaments were coagulated and incised. The anterior and posterior leaves of the broad ligament were . A bladder flap was created. Using the monopolar Endo Elizabeth, the uterine vessels were coagulated and incised. The hematoma was encountered in the left lower uterine segment. This was possibly infected as there was brownish drainage coming from the hematoma. There was noted to be a uterine perforation - the previous uterine perforation noted at that site; it appeared to be chronically draining into the vagina. The hematoma was opened and coagulated and incised. The uterine vessels were coagulated and incised bilaterally. A colpotomy was created at the level of VCare cup. This was extended circumferentially around the upper vagina. Specimen containing the uterus and cervix was removed through the vagina. The fallopian tubes had previously been removed. The vaginal cuff was closed with #1 V-Loc suture in a running locked fashion. The pelvis was copiously irrigated. Good hemostasis noted. The patient received methylene blue dye intravenously. Cystoscopy was performed using a 70-degree cystoscope. There was no evidence of injury to the bladder. Bilateral ureteral jets were identified. All instruments were removed. Skin was closed with #4-0 Monocryl subcuticular sutures. Sponge, instrument and needle counts were correct. [facility]
[2018-09-06 01:00] VITALS: BP 103/66
[2018-09-06] MEDS ORDERED: CALCIUM CARBONATE 500 MG CHEW U/D PO ONE (02:30)
[2018-09-06 04:00] VITALS: BP 99/54
[2018-09-06 06:53] LABS: HEMATOCRIT 35.1 % (36.0-47.0); HEMOGLOBIN 11.5 g/dl (12.0-15.5); MEAN CORPUSCULAR HEMOGLOBIN 29.8 pg (27.0-33.0); MEAN CORPUSCULAR HGB CONC 32.8 g/dl (32.0-36.5); MEAN CORPUSCULAR VOLUME 90.9 fl (80.0-96.0); PLATELET COUNT, AUTOMATED 234 10^3/uL (150-450); RED BLOOD COUNT 3.86 10^6/uL (4.00-5.40); WHITE BLOOD COUNT 12.8 10^3/uL (4.0-10.0)
[2018-09-06 08:20] VITALS: BP 107/65
[2018-09-06] MEDS: DOCUSATE SODIUM 100 MG CAP PO SCH (08:22)
[2018-09-06] MEDS ORDERED: IBUP1TAB7 PO (08:52)
[2018-09-06] MEDS ORDERED: OMEPRAZOLE 20 MG CAP PO SCH (09:00)
== END 2018-09-06 11:00 | disposition home or self-care (01) ==
LOC: M SDC 12:13 → M PED 18:00 → M SDC 09-06 11:00
PROVIDERS: ATTEND Specialist
DX: N93.9 Abnormal uterine and vaginal bleeding, unspecified (principal); S37.69 Other injury of uterus; R94.31 Abnormal electrocardiogram [ECG] [EKG]; K21.9 Gastro-esophageal reflux disease without esophagitis; Z88.0 Allergy status to penicillin; Z88.2 Allergy status to sulfonamides; Z79.899 Other long term (current) drug therapy; Z98.51 Tubal ligation status; Z72.0 Tobacco use
CPT/HCPCS: 36415; 58571; 84703; 85027; 86850; 86900; 86901; 88307; 96365; 96366; 96375; J0131; J0690; J1100; J1170; J1885; J2250; J2270; J2405; J3010; Q9968